=== PATIENT | male | born 1940 | race Caucasian/White ===

== ENCOUNTER → 2020-03-11 08:16 | Outpatient (BNVA) | payer MEDICARE, SELFPAY | PROVIDERS: Family Provider Internal Medicine; PCP Family Medicine; Visit Provider Urology | DX: R97.20 Elevated prostate specific antigen [PSA] (principal) | CPT/HCPCS: 81001; 84153 ==

== ENCOUNTER → 2020-05-31 12:07 | Outpatient (BNVA) | payer MEDICARE, SELFPAY | PROVIDERS: Family Provider Internal Medicine; PCP Family Medicine; Visit Provider Urology | DX: R97.20 Elevated prostate specific antigen [PSA] (principal); Z12.5 Encounter for screening for malignant neoplasm of prostate | CPT/HCPCS: 84153 ==

== ENCOUNTER → 2020-06-02 08:04 | Outpatient (BNVA) | payer MEDICARE, SELFPAY | PROVIDERS: Family Provider Internal Medicine; PCP Family Medicine; Visit Provider Urology | DX: R97.20 Elevated prostate specific antigen [PSA] (principal) | CPT/HCPCS: 81001 ==

== ENCOUNTER → 2020-08-27 08:52 | Outpatient (BNVA) | payer MEDICARE, SELFPAY | PROVIDERS: Family Provider Internal Medicine; PCP Family Medicine; Visit Provider Urology | DX: R97.20 Elevated prostate specific antigen [PSA] (principal) | CPT/HCPCS: 84153 ==

== ENCOUNTER → 2020-09-02 08:34 | Outpatient (BNVA) | payer MEDICARE, SELFPAY | PROVIDERS: Family Provider Internal Medicine; PCP Family Medicine; Visit Provider Urology | DX: R97.20 Elevated prostate specific antigen [PSA] (principal) | CPT/HCPCS: 81003 ==

== ENCOUNTER → 2020-12-06 07:46 | Outpatient (BNVA) | payer MEDICARE, SELFPAY | PROVIDERS: Family Provider Internal Medicine; PCP Family Medicine; Visit Provider Urology | DX: R97.20 Elevated prostate specific antigen [PSA] (principal); R39.9 Unspecified symptoms and signs involving the genitourinary system | CPT/HCPCS: 81003; 84153 ==

== ENCOUNTER → 2021-03-29 11:43 | Outpatient (BNVA) | payer MEDICARE, SELFPAY | PROVIDERS: Family Provider Internal Medicine; PCP Family Medicine; Visit Provider Urology | DX: R97.20 Elevated prostate specific antigen [PSA] (principal) | CPT/HCPCS: 84153 ==

== ENCOUNTER → 2021-04-05 10:35 | Outpatient (BNVA) | payer MEDICARE, SELFPAY | PROVIDERS: Family Provider Internal Medicine; PCP Family Medicine; Visit Provider Urology | DX: R39.9 Unspecified symptoms and signs involving the genitourinary system (principal); R97.20 Elevated prostate specific antigen [PSA] | CPT/HCPCS: 81003 ==

== ENCOUNTER → 2021-09-28 12:01 | Outpatient (BNVA) | payer MEDICARE, SELFPAY | PROVIDERS: Family Provider Internal Medicine; PCP Family Medicine; Visit Provider Urology | DX: R97.20 Elevated prostate specific antigen [PSA] (principal) | CPT/HCPCS: 84153 ==

== ENCOUNTER → 2021-10-05 07:55 | Outpatient (BNVA) | payer MEDICARE, SELFPAY | PROVIDERS: Family Provider Internal Medicine; PCP Family Medicine; Visit Provider Urology | DX: N28.9 Disorder of kidney and ureter, unspecified (principal); R97.20 Elevated prostate specific antigen [PSA]; J44.9 Chronic obstructive pulmonary disease, unspecified; I10 Essential (primary) hypertension | CPT/HCPCS: 81003 ==

== ENCOUNTER → 2022-12-11 13:48 | Outpatient (BNVA) | payer MEDICARE, SELFPAY | PROVIDERS: Family Provider Internal Medicine; PCP Family Medicine; Visit Provider Urology | DX: R97.20 Elevated prostate specific antigen [PSA] (principal) | CPT/HCPCS: 51798; 81003; 99213 ==

== ENCOUNTER → 2023-01-03 14:41 | Outpatient (BNVA) | payer MEDICARE, SELFPAY | PROVIDERS: Family Provider Internal Medicine; PCP Family Medicine; Visit Provider Urology | DX: R97.20 Elevated prostate specific antigen [PSA] (principal) | CPT/HCPCS: 81003; 99214 ==

== ENCOUNTER → 2023-01-05 01:00 | Day surgery (SDC) | payer MEDICARE, SELFPAY ==
[2023-01-05 10:03] VITALS: BMI 20.5
--- NOTE | 2023-01-05 10:22 | ECG_ITS ---
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 Measurements Intervals [place] Rate: 97 P: 86 NE: 139 QRS: 87 QRSD: 88 T: 69 QT: 313 QTc: 398 Interpretive Statements SINUS RHYTHM WITH FREQUENT VENTRICULAR PREMATURE COMPLEXES IN A BIGEMINAL PATTERN ABNORMAL RHYTHM ECG No previous ECG available for comparison Electronically Signed On 01-05-2023 23:15:47 CDT by Rajan Reynolds M.D. [email or web address] memorial [email or web address] liverpool city hospitalKoudai/store/[id number]
[2023-01-05 10:27] LABS: Basophils # 0.1 10^3/uL (0.0-0.1); Basophils % 0.7 %; Eosinophils # 0.2 10^3/uL (0.0-0.8); Eosinophils % 2.7 %; Hematocrit 45.6 % (42.0-52.0); Hemoglobin 14.5 g/dL (11.7-16.6); Lymphocytes # 1.9 10^3/uL (0.8-4.8); Lymphocytes % 23.3 %; Mean Corpuscular HGB Conc 31.8 g/dL (30.0-36.0); Mean Corpuscular Hemoglobin 27.8 pg (28.0-34.0); Mean Corpuscular Volume 87.4 fl (80-94); Mean Platelet Volume 9.4 fL (7.4-10.4); Monocytes # 0.7 10^3/uL (0.2-0.9); Monocytes % 8.3 %; Neutrophils # 5.29 10^3/uL (1.8-7.7); Neutrophils % 64.8 %; Nucleated Red Blood Cells % 0 %; Platelet Count 220 10^3/cmm (130-400); Red Blood Count 5.22 10^6/uL (4.1-5.3); White Blood Count 8.2 10^3/uL (4.0-10.0)
--- NOTE | 2023-01-05 10:41 | P.ANESASSM_ITS ---
Pre-Anesthetic Assessment Height/Weight: Height 1.73 m Weight 61.235 kg Operation Date: 01/08/23 07:00 Proposed Procedures p TRANSRECTAL ULTRASOUND PROSTATE BIOPSY 97725 [id number],R97.20(Not Applicable) - Benjamin Wilson MD Familial anesthetic complications: None Social No alcohol and No tobacco former smoker Exam alert, oriented x 3, clear to auscultation bilaterally and regular rate & rhythm Airway Mallampati: Class II Dentition: false Pulmonary Chronic Obstructive Pulmonary Disease CV/HEM Hypertension Unable to achieve > 4 METS without SOB Bigeminy on EKG today None reported Hepatic None reported GI None reported Metabolic None reported Musc/skel Lower Back Pain Neuropsych None reported Anesthetic Plan ASA status: 2 Anesthesia: General Risk of > 500 ml blood loss (7ml/kg in children): No Other Pertinent Information Will notifiy office he needs cardiac eval for bigeminy on EKG Medications/Allergies Home Medications Medication Instructions Recorded Confirmed Last Taken Type hydrocodone 10 mg-acetaminophen 1 tab PO BID PRN Pain 03/11/20 01/05/23 Unknown History 325 mg tablet quetiapine 25 mg tablet 25 mg PO DAILY 03/11/20 01/05/23 Unknown History levofloxacin 500 mg tablet 500 mg PO DAILY #4 tabs 01/03/23 01/03/23 Unknown Rx ipratropium 20 mcg-albuterol 100 puff inhalation 3XD 01/05/23 Unknown History mcg/actuation mist for inhalation (Combivent Respimat) Allergies Allergy/AdvReac Type Severity Reaction Status Date / Time No Known Allergies Allergy Unverified 01/03/23 14:47 [facility] Anesthesia Medical History COPD (chronic obstructive pulmonary disease) Elevated PSA Hypertension Lower urinary tract symptoms Renal insufficiency Surgical History S/P appendectomy S/P tonsillectomy and adenoidectomy Family History Mother , 80 Cancer colon Father , in his 60's Heart attack Social History (Updated 01/03/23 @ 14:48 by Jessica Thakkar LPN) Smoking and tobacco status: former smoker Alcohol intake: never Marital status: Current occupational status: retired Data Anesthesia 01/05/23 10:15 01/05/23 10:15 Short CBC 01/05/23 Range/Units 10:15 WBC 8.2 (4.0-10.0) 10^3/uL Hgb 14.5 (11.7-16.6) g/dL Hct 45.6 (42.0-52.0) % MCV 87.4 (80-94) fl Plt Count 220 (130-400) 10^3/cmm Neut % (Auto) 64.8 % Neut # (Auto) 5.29 (1.8-7.7) 10^3/uL Cardiac Studies: No Data to Display
[2023-01-05 10:48] LABS: Alanine Aminotransferase 9 U/L (0-41); Albumin Level 3.9 g/dL (3.5-5.2); Alkaline Phosphatase 85 U/L (40-130); Anion Gap 14.2 (5-19); Aspartate Amino Transferase 14 U/L (0-40); Blood Urea Nitrogen 19 mg/dL (8-23); Carbon Dioxide 27 mmol/L (22-29); Chloride 105 mmol/L (98-107); Glucose 90 mg/dL (65-115); Osmolality Calculated 296 mOsm/kg (285-295); Potassium 4.2 mmol/L (3.5-5.1); Sodium 142 mmol/L (136-145); Total Bilirubin 0.5 mg/dL (0.15-1.2); Total Protein 6.9 g/dL (6.6-8.7)
== END ==
LOC: OPS 04-02 16:19
PROVIDERS: Anesthesiology; PCP Family Medicine; Visit Provider Urology
DX: Z01.818 Encounter for other preprocedural examination (principal)
CPT/HCPCS: 80053; 85025; 93005

== ENCOUNTER → 2023-01-09 13:28 | Outpatient (BNVA) | payer MEDICARE, SELFPAY | PROVIDERS: PCP Family Medicine; Visit Provider Internal Medicine | DX: R07.9 Chest pain, unspecified (principal); I10 Essential (primary) hypertension; I49.8 Other specified cardiac arrhythmias; Z87.891 Personal history of nicotine dependence | CPT/HCPCS: 99204 ==

== ENCOUNTER 2023-02-05 14:37 | Outpatient (CLI) | payer MEDICARE, SELFPAY ==
--- NOTE | 2023-02-05 15:00 | USCV_ITS ---
Khoi Grey Age: 82 Gender: M : 1940 Exam Date: 02/05/2023 14:55 Ordering Phys: Hang Hardin M.D ([email or web address]) Technologist: Exam Location: [facility] Indication: chest pain BP: 150 / 95 HR: 103 Rhythm: Sinus Technical Quality: Adequate MEASUREMENTS (Male / Female) Normal Values 2D ECHO LV Diastolic Diameter PLAX 3.6 cm 4.2 - 5.9 / 3.9 - 5.3 cm LV Systolic Diameter PLAX 2.4 cm IVS Diastolic Thickness 0.9 cm 0.6 - 1.0 / 0.6 - 0.9 cm IVS Systolic Thickness 1.5 cm LVPW Diastolic Thickness 1.0 cm 0.6 - 1.0 / 0.6 - 0.9 cm LVPW Systolic Thickness 1.4 cm LVOT Diameter 2.0 cm LV Ejection Fraction 2D Teich 62.8 % LV Ejection Fraction MOD 2C 71.0 % LV Ejection Fraction 2C AL 71.0 % LA Diameter 3.4 cm IVC Diameter 1.3 cm M-MODE Aortic Annulus Diameter 3.0 cm LA Ao Ratio MM 1.0 MV E Point Septal Separation 0.5 cm DOPPLER AV Peak Velocity 127.0 cm/s LVOT Peak Velocity 91.7 cm/s AV Area Cont Eq vti 2.4 cm squared AV Area Cont Eq pk 2.3 cm squared MV Area PHT 5.0 cm squared Mitral E to A Ratio 0.8 MV E' Velocity 45.0 cm/s Mitral E to MV E' Ratio 8.9 Mitral E to LV E' Lateral Ratio 7.9 Mitral E to LV E' Septal Ratio 10.1 TR Peak Velocity 222.3 cm/s TR Peak Gradient 19.8 mmHg TV Peak E Velocity 90.0 cm/s Right Atrial Pressure 3.0 mmHg Pulmonary Artery Systolic Pressu 22.8 mmHg FINDINGS Left Ventricle Left ventricle is normal in size. LV systolic function is normal with EF of 60 to 65%. No regional wall motion abnormalities are seen. Grade 1 diastolic dysfunction. Right Ventricle Normal in size and function Right Atrium Normal in size Left Atrium Normal in size Mitral Valve Mild mitral annular calcification is seen. Trace mitral regurgitation. Aortic Valve Structurally normal aortic valve.No significant stenosis or regurgitation. Tricuspid Valve Mild tricuspid regurgitation. Pulmonary artery systolic pressure is normal. Pulmonic Valve Not well visualized Pericardium Normal Aorta Normal in size IVC Appears to be normal CONCLUSIONS LV systolic function is normal with EF of 60 to 65%. Grade 1 diastolic dysfunction Mild tricuspid regurgitation. Trace mitral regurgitation. No comparison studies are available. Hang Hardin MD (Electronically Signed) Final Date: 16 Feb 2023 14:18 S
== END 2023-02-05 14:38 | disposition home or self-care (01) ==
LOC: RAD 14:46
PROVIDERS: PCP Family Medicine; Visit Provider Internal Medicine
DX: R06.02 Shortness of breath (principal); R07.9 Chest pain, unspecified; I07.1 Rheumatic tricuspid insufficiency
CPT/HCPCS: 93306

== ENCOUNTER 2023-02-13 09:48 | Outpatient (CLI) | payer MEDICARE, SELFPAY ==
[2023-02-13 10:24] VITALS: BMI 20.2
--- NOTE | 2023-02-13 10:26 | NMCV_ITS ---
NM misbah perf SPECT r/s* [id number] Khoi Grey Age: 82 Gender: M : 1940 Exam Date: 02/13/2023 10:26 Ordering Phys: Hang Hardin M.D ([email or web address]) Technologist: JAYSON Orona Exam Location: [facility] Indications: CHEST PAIN, SHORTNESS OF BREATH STRESS TEST Please [facility] IMAGE PROTOCOL Rest/Stress 1 Lexiscan Day Radiopharmaceutical Dose (mCi) Administration Site Administered by Rest: Tc-99m 11.0 IV JAYSON Whatley Sestamialexx Stress:Tc-99m 32.4 IV JAYSNO Whatley Sestamibi Rest: 13-Feb-2023 60 Discovery 630 Stress: 13-Feb-2023 30 Discovery 630 0.4mg Lexiscan. Images obtained in supine and prone position. SPECT RESULTS Technical Quality: Excellent Raw Data Analysis: Normal Image Corrections: No attenuation or motion correction applied Summed Stress Score: 0 Summed Rest Score: 1 Summed Difference Score: 0 PERFUSION FINDINGS SPECT images demonstrate homogeneous tracer distribution throughout the myocardium. FUNCTIONAL RESULTS (calculated via Gated SPECT) Stress Image LV EF (%): 64 Stress EDV (mL):72 TID: 1.02 Stress ESV (mL):26 FUNCTIONAL FINDINGS: There is normal left ventricular systolic function. IMPRESSIONS 1. Normal myocardial perfusion imaging with no evidence of ischemia 2. LV systolic function is normal Hang Hardin MD (Electronically Signed) Final Date: 14 Feb 2023 08:18 S
--- NOTE | 2023-02-13 10:26 | ECG_ITS ---
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 Interpretive Statements NAME OF STUDY: LEXISCAN SESTAMIBI STRESS TEST INDICATION: [Shortness of Breath; Chest Pain, ] Procedure: At the baseline, the blood pressure was 150/79 mmHg with a heart rate of 88 bpm. The electrocardiogram showed normal sinus rhythm, frequent PACs normal axis with normal ST and T's. The Lexiscan was infused over a period of 20 seconds. A total of 0.4 mg of Lexiscan was infused. The stress phase was continued for a total of 5 minutes. Heart rate was at the end of stress phase was 91 bpm and a blood pressure of 140/76 mmHg. The EKG at the peak infusion revealed normal sinus rhythm with no significant ST-T wave changes. Sestamibi was injected 20 seconds after the Lexiscan infusion. Blood pressure at the end of recovery phase was 140/74 mmHg with a heart rate of 94 bpm. Conclusion: 1. Normal EKG response to Lexiscan infusion 2. No Lexiscan induced chest pain or cardiac arrhythmia. 3. Normal blood pressure and heart rate response. 4. Sestamibi/sestamibi perfusion scan pending; see separate report. Electronically Signed On 03-03-2023 20:54:05 CDT by Hang Hardin M.D. [id number]
[2023-02-13] MEDS: regadenoson 0.4 Mg/5 ml Syringe IVP (11:43)
[2023-02-13 12:04] VITALS: BP 140/74; PULSE 96
== END 2023-02-13 09:49 | disposition home or self-care (01) ==
LOC: CDL 09:49
PROVIDERS: PCP Family Medicine; Visit Provider Internal Medicine
DX: R07.9 Chest pain, unspecified (principal); R06.02 Shortness of breath
CPT/HCPCS: 36415; 78452; 93017; 96374; A9500; J2785

== ENCOUNTER → 2023-03-09 09:35 | Outpatient (BNVA) | payer MEDICARE, SELFPAY | PROVIDERS: PCP Family Medicine; Visit Provider Internal Medicine | DX: R07.9 Chest pain, unspecified (principal); I10 Essential (primary) hypertension; I49.8 Other specified cardiac arrhythmias; Z87.891 Personal history of nicotine dependence | CPT/HCPCS: 99214 ==

== ENCOUNTER → 2024-01-16 12:17 | Outpatient (BNVA) | payer MEDICARE, SELFPAY | PROVIDERS: PCP Family Medicine; Visit Provider Internal Medicine | DX: R07.9 Chest pain, unspecified (principal); I10 Essential (primary) hypertension; I49.8 Other specified cardiac arrhythmias; Z87.891 Personal history of nicotine dependence | CPT/HCPCS: 99214 ==

== ENCOUNTER 2024-03-12 11:39 | Outpatient (CLI) | payer MEDICARE, SELFPAY ==
--- NOTE | 2024-03-12 11:47 | CT_ITS ---
WS: [id number] CT CHEST TECHNIQUE: Contrast enhanced CT of the chest with coronal and sagittal reformatted images. CLINICAL INFORMATION: COPD/DYSPNEA/WEIGHT LOSS COMPARISON: CT chest 2006 DLP: 264.[address] scans at [facility] use at least one of these dose optimization techniques: automated e xposure control; mA and/or kV adjustment per patient size (includes targeted exams where dose is matc hed to clinical indication); or iterative reconstruction. FINDINGS: Normal caliber thoracic aorta. Aortic calcification. Coronary calcification. No mediastinal or hilar lymphadenopathy. No axillary lymphadenopathy. Adrenal glands are normal. Small esophageal hiatal hernia. Mild thoracic curve. Hypertrophic changes thoracic spine. Calcified granuloma RIGHT upper lobe unchanged. Advanced chronic emphysematous changes with cystic br onchiectasis in the RIGHT upper lobe, RIGHT middle lobe, and RIGHT greater than LEFT lower lobes. Ej e-in-bud opacities more prominent in the RIGHT middle lobe and RIGHT greater than LEFT lower lobes. N o focal pneumonia or pleural fluid. No focal consolidation. Subsegmental atelectasis with pleural parenchymal scarring in the RIGHT greater than LEFT lower lobes . Trace RIGHT pleural fluid. CT/CT chest w con* [id number] IMPRESSION: 1. Advanced chronic emphysematous changes. 2. Cystic bronchiectasis more prominent in the RIGHT upper lobe, RIGHT middle lobe, and RIGHT greater than LEFT lower lobes. 3. Pleural parenchymal scarring in the RIGHT lower lobe with subsegmental atel ectasis. Trace RIGHT pleural fluid. 4. Tree-in-bud opacities in the RIGHT middle lobe and RIGHT greater than LEFT lower lobes likely inflammatory. This can be seen with respiratory bronchioliti s
[2024-03-12] MEDS: iohexol 350 mg/mL 500 mL Btl (per mL) IV (12:13)
== END 2024-03-12 11:40 | disposition home or self-care (01) ==
LOC: RAD 11:39
PROVIDERS: PCP Family Medicine; Visit Provider Family Medicine
DX: J43.9 Emphysema, unspecified (principal); J47.9 Bronchiectasis, uncomplicated; R63.4 Abnormal weight loss
CPT/HCPCS: 71260; Q9967

== ENCOUNTER 2025-04-08 12:45 | Outpatient (CLI) | payer MEDICARE, SELFPAY ==
--- NOTE | 2025-04-08 12:51 | CT_ITS ---
WS: [id number] CT ABDOMEN AND PELVIS WITH CONTRAST HISTORY: ABNORMAL WEIGHT LOSS/MALIGNANT NEOPLASM OF PROSTATE TECHNIQUE: Imaging performed of the abdomen and pelvis with IV contrast. Single phase imaging of the abdomen. Coronal and sagittal reformats are submitted. All CT scans at [facility] use at least one of these dose optimization techniques: automated exposure control; mA and/or kV adjustment per patient size (includes targeted exams where dose is matched to clinical indication); or iterative reconstruction. IV CONTRAST: Omnipaque 350; 100 mL IV. Oral contrast: Yes DLP: 229.01 mGy.cm COMPARISON: Chest radiograph 03/12/2024 Lower thorax: New consolidation at the LEFT lung base abutting the diaphragm consistent with pneumonia. Additional areas of bronchiectasis at the lung bases superimposed on severe centrilobular emphysema. There are a few additional areas of tree-in-bud airspace disease which were described on the prior study. Very small associated LEFT pleural effusion. Heart is normal size. No hiatal hernia. Liver/biliary system: Normal size liver. Focal fatty sparing adjacent to the falciform ligament. Gallbladder: Moderately distended gallbladder. Transverse diameter of the gallbladder is 4.9 cm. No wall thickening. Large central filling defects within the gallbladder lumen with the largest measuring 2.7 x 2.3 cm. Small stones were identified on a prior CT from 01/19/2016. These are likely stones which have increased in size. Common bile duct does not appear to be dilated. Pancreas: Limited visualization. Spleen: Normal size spleen. No mass or infarct. Adrenal glands: Normal. Right kidney: Normal. Left kidney: Normal. Aorta: Moderate atherosclerosis with no aneurysm. Dense calcification of the origin of the SMA and celiac axis. Component of stenosis is likely. Lymphadenopathy: None. Free fluid: Small amount in the pelvis. GI tract: No GI tract obstruction. There is mild thickening of the GE junction which was not present on the prior exam. No colitis. The appendix is not definitely identified but there is no evidence for appendicitis or inflammation in the RIGHT lower quadrant. Abdominal wall: Unremarkable abdominal wall. No hernia. Pelvis: There is a very small amount of free fluid in the pelvis which is abnormal for a male patient. Prostate gland is enlarged and heterogeneous with calcifications. Asymmetric enhancement of the prostate. Prostate encroaches into the urinary bladder. Bones: Scattered sclerotic foci within the spine and pelvis. CT/CT abdomen pelvis w con* [id number] IMPRESSION: 1. Dense consolidation LEFT lung base consistent with pneumonia with a small a djacent sympathetic pleural effusion. Follow-up to resolution. 2. Bibasilar areas of bronchiectasis and tree-in-bud airspace disease, chronic . 3. Small amount of free fluid in the pelvis. 4. Cholelithiasis. 5. Numerous sclerotic foci within the visualized spine and pelvis. Suspect ost eoblastic metastatic disease. Consider prostate carcinoma. 6. Atherosclerosis aorta and proximal mesenteric arteries. 7. Mild mucosal thickening at the gastroesophageal junction. This can be furth er evaluated for possible neoplasm or gastritis. New since 03/12/2024.
[2025-04-08] MEDS: iohexol 350 mg/mL 500 mL Btl (per mL) PO (13:28)
[2025-04-08] MEDS: iohexol 350 mg/mL 500 mL Btl (per mL) IV (13:52)
== END 2025-04-08 12:46 | disposition home or self-care (01) ==
LOC: RAD 12:47
PROVIDERS: PCP Family Medicine; Visit Provider Family Medicine
DX: R63.4 Abnormal weight loss (principal); C61 Malignant neoplasm of prostate; R91.8 Other nonspecific abnormal finding of lung field; J90 Pleural effusion, not elsewhere classified; J47.9 Bronchiectasis, uncomplicated; J98.4 Other disorders of lung; R93.89 Abnormal findings on diagnostic imaging of other specified body structures; K80.20 Calculus of gallbladder without cholecystitis without obstruction; I70.0 Atherosclerosis of aorta; K55.1 Chronic vascular disorders of intestine; J43.2 Centrilobular emphysema; K76.0 Fatty (change of) liver, not elsewhere classified; N40.0 Benign prostatic hyperplasia without lower urinary tract symptoms
CPT/HCPCS: 74177